=== PATIENT | male | born 2005 | race Caucasian/White ===

== ENCOUNTER 2025-07-04 15:10 | Emergency (ER) | payer SELFPAY ==
[~2025-07-04] VITALS: Ht 175.3 cm; Wt 78.0 kg
[2025-07-04 15:14] VITALS: BP 129/75; PULSE 78; RESP 16; TEMP 98.1; O2SAT 99
[2025-07-04] MEDS ORDERED: ACETAMINOPHEN 500MG TABLET PO ONE (15:45)
[2025-07-04] MEDS ORDERED: IBUPROFEN 600MG TABLET PO ONE (15:45)
== END 2025-07-04 18:01 | disposition left against medical advice (07) ==
LOC: ER 15:10
DX: M25.552 Pain in left hip (principal); M25.562 Pain in left knee
CPT/HCPCS: 99281